=== PATIENT | female | born 1960 | race Hispanic/Latino ===

== ENCOUNTER 2019-06-30 13:20 | Emergency (ER) | payer OTHER ==
--- OUTSIDE RECORDS SUMMARY | 2019-06-30 13:22 | XMS REPORT ---
:1960 [facility] Manzano [address] [place] [address] Care Team Providers Name Role Phone Unavailable Unavailable Unavailable Problems This patient has no known problems. Allergies, Adverse Reactions, Alerts This patient has no known allergies or adverse reactions. Medications This patient has no known medications.
--- OUTSIDE RECORDS SUMMARY | 2019-06-30 13:22 | XMS REPORT | Summary of Care ---
:1960 Author Organization [facility] Address [address] [place] [address] Care Team Providers Name Role Phone Pcp, Patient Does Not Have A Primary Care Provider Reason for Visit Reason Comments Leg Pain Auth/Cert Status Reason Specialty Diagnoses / Referred By Referred To Procedures Contact Contact Emergency Medicine Diagnoses GROIN PAIN INTO LEG [facility] Emergency Dept [address] [place] [address] [place] [address] Encounter Details Date Type Department Care Team Description 04/03/2019 Emergency [facility]-Emergency Harvey Triana III, Sprain of groin, Department [place] initial encounter [address] [place] [address] [place] [address] (Primary Dx) [place] [address] [place], [place] [id number] Allergies Active Allergy Reactions Severity Noted Date Comments Naproxen Sodium Nausea and/or Vomiting 03/29/2015 Codeine Nausea and/or Vomiting 03/29/2015 documented as of this encounter (statuses as of 04/03/2019) Medications Medication Sig Dispensed Refills Start Date End Date Status doxycycline Take 1 Cap by 20 Cap 0 03/29/2015 Active (VIBRAMYCIN) 100 mg mouth 2 (two) capsule times daily. albuterol (VENTOLIN) Inhale 2 Puffs 1 Inhaler 0 03/29/2015 Active 90 mcg/actuation every 4 (four) inhaler hours as needed for Wheezing or Shortness of Breath. albuterol (PROAIR) Inhale 2 Puffs 8.5 g 3 09/23/2015 Active 90 mcg/actuation every 4 (four) inhaler hours as needed for Wheezing, Shortness of Breath or Bronchospasm. benzonatate 100 mg Take 1 capsule 20 capsule 0 03/26/2018 Active capsule by mouth 3 (three) times daily as needed for Cough. albuterol 2.5 mg /3 Inhale 3 mL 1 Box 0 03/26/2018 Active mL (0.083 %) every 4 (four) nebulizer solution hours as needed for Wheezing or Shortness of Breath. albuterol 90 Inhale 2 Puffs 8.5 g 0 03/26/2018 Active mcg/actuation every 4 (four) inhaler hours as needed for Wheezing or Shortness of Breath. predniSONE 10 mg Take 4 tablets 12 tablet 0 04/03/2019 Active tabletIndications: by mouth daily 9 Sprain of groin, for 3 days. initial encounter traMADol (ULTRAM) 50 Take 1 tablet 9 tablet 0 04/03/2019 Active mg by mouth every tabletIndications: 8 (eight) Sprain of groin, hours as initial encounter needed for Pain (scale 4-6). acetaminophen Take 3 tablets 60 tablet 0 04/03/2019 Active (TYLENOL) 325 mg by mouth 4 9 tabletIndications: (four) times Sprain of groin, daily for 5 initial encounter days. This is the maximum safe dose for a healthy adult. cyclobenzaprine 5 mg Take 1 tablet 9 tablet 0 04/03/2019 Active tabletIndications: by mouth 3 Sprain of groin, (three) times initial encounter daily. predniSONE 20 mg 1 PO BID x 4 8 tablet 0 03/26/2018 Discontinued tablet days 9 documented as of this encounter (statuses as of 04/03/2019) Active Problems No known active problemsdocumented as of this encounter (statuses as of 2018) Social History Tobacco Use Types Packs/Day Years Used Date Never Assessed Sex Assigned at Date Recorded Not on file Job Start Date Occupation Industry Not on file Not on file Not on file Travel History Travel Start Travel End No recent travel history available. documented as of this encounter Last Filed Vital Signs Vital Sign Reading Time Taken Comments Blood Pressure 129/91 04/03/2019 4:45 PM CDT Pulse 84 04/03/2019 4:45 PM CDT Temperature 36.4 C (97.5 F) 04/03/2019 4:45 PM CDT Respiratory Rate 18 04/03/2019 4:45 PM CDT Oxygen Saturation 99% 04/03/2019 4:45 PM CDT Inhaled Oxygen Concentration - - Weight 74.8 kg (165 lb) 04/03/2019 4:45 PM CDT Height - - Body Mass Index 29.23 03/26/2018 1:46 PM CDT documented in this encounter Discharge Instructions Harvey Mead III, PA - 04/03/2019 @@@@@@@@@@@@@@@@@@@@@@@@@@@@@@@@@@@@@@@@@@@@@@@@@@@@@ [facility] RETURN TO WORK / SCHOOL EXCUSE Arabella Alatorre WAS SEEN IN THE ER AND DISCHARGED 04/03/2019 TODAY, 4:55 PM & May return to Work / School / Incarceration on with No limitations unless indicated below. ___The following limitations apply until pt is seen by Physician and cleared to return to normal activity. ___ Light duty ___ No Sports ___ No work ___ Do not return until fever free for 24 hours. ___ No school [employer] [facility] [address] [place] [address] [place] [address] If you are unprepared to return to work tomorrow due to pain please give this note to your employer and make a follow up appointment with your MD for further evaluation and limitations. ### The patient may have been given Narcotic pain medications during their stay in the ED that may show up on a Drug Screen. The hospital discharge paper work will identify these medications. @@@@@@@@@@@@@@@@@@@@@@@@@@@@@@@@@@@@@@@@@@@@@@@@@@@@@ Thank you for trusting us with your care. The emergency room is the first stop in the medical management of your complaint . Our primary pupose is to identify life threatening emergancies and to rapidly address those issues. We are releasing you today after evaluation for emergency or life threatening problems related to your complaint. At this time we are comfortable that your condition is stable enough to go home, take oral medications and follow up for further care. If you can't afford a doctor OR MEDICATIONS consider Clinic [facility], [address], [place]; [phone] Medications Prevently WILL SHOW YOU WHERE YOU CAN GET YOUR MEDICATIONS CHEAPEST. 1. Call your doctor and let them know you were seen for ICD-10-CM ICD-9-CM 1. Sprain of groin, initial encounter S33.8XXA 848.8 2. Schedule a follow up within 3 days of your ER visit. 3. Take your prescriptions to the pharmacy and get them filled today. 4. Take the medications as prescribed and until completed. 5. You have been referred for further care 6. You may need additional tests Your doctors will help you figure out what you need and how to get them done. 7. Please read all paperwork provided to you. Additional instructions See Attached AttachmentsThe following attachments cannot be sent through Care Everywhere.Getting Into and Out of Bed, Back Safety (Bruneian)Strains and Sprains , Treating (Bruneian)documented in this encounter Plan of Treatment Health Maintenance Due Date Last Done Comments HEPATITIS C (HCV) SCREEN 1960 PNEUMOCOCCAL 0-64 YEARS COMBINED SERIES (1 of 1 - 1964 PPSV23) DTaP,Tdap,and Td Vaccines (1 - Tdap) 1977 PAP SMEAR 10/02/1979 MAMMOGRAM 1998 COLONOSCOPY 2008 Zoster Recombinant Vaccine (SHINGRIX) (1 of 2) 2008 INFLUENZA VACCINE (Retired version) 03/27/2019 documented as of this encounter Procedures Procedure Name Priority Date/Time Associated Diagnosis Comments NOTICE OF PRIVACY Routine 04/03/2019 4:45 PM CDT PRACTICES CONSENT/REFUSAL FOR Routine 04/03/2019 4:38 PM CDT DIAGNOSIS AND TREATMENT documented in this encounter Results Not on filedocumented in this encounter Visit Diagnoses Diagnosis Sprain of groin, initial encounter - Primary documented in this encounter Insurance Payer Benefit Plan / Subscriber ID Effective Dates Phone Address Type Group [facility] [id number] [facility] PPO t S [phone] [id number] (Work) documented as of this encounter
[2019-06-30 14:56] LABS: Urine Blood TRACE (NEG); Urine Glucose NEGATIVE (NEG); Urine Protein NEGATIVE (NEG)
--- NOTE | 2019-06-30 15:15 | EDPHYS ---
Physician Documentation [facility] Name: Arabella Alatorre Age: 58 yrs Sex: Female : 1960 Arrival Date: 06/30/2019 Time: 13:22 Bed 19 Private MD: ED Physician Beto Moralez HPI: 06/30 15:12 This 58 yrs old Female presents to ER via Ambulatory with complaints of Leg kb Swelling, Ankle Swelling, Low Back Pain. 15:12 The patient has not recently seen a physician. kb 15:12 The patient presents with pain, that is acute, swelling. The complaints affect the left kb quadriceps, right ankle. Context: the patient can fully bear weight, the patient is able to ambulate. Onset: The symptoms/episode began/occurred this morning. Modifying factors: The symptoms are alleviated by nothing. the symptoms are aggravated by standing at work for a long time. Associated signs and symptoms: Pertinent positives: swelling. Treatment prior to arrival includes: no previous treatment. Severity of symptoms: At their worst the symptoms were mild, in the emergency department the symptoms are unchanged. The patient has not experienced similar symptoms in the past. Pt reports right ankle swelling for "a while," left thigh pain that started this morning and left lower back pain that only happens when standing at work. Denies any injury. Has had ankle checked out before and everything was fine. Historical: - Allergies: 14:04 Codeine; jl7 - Home Meds: 14:04 None [Active]; jl7 - PMHx: 14:04 None; jl7 - PSHx: 14:04 None; jl7 - Immunization history:: Adult Immunizations not up to date. - Social history:: Smoking status: Patient uses tobacco products, smokes one-half pack cigarettes per day. - Ebola Screening: : No symptoms or risks identified at this time. ROS: 15:10 Constitutional: Negative for fever, chills, and weight loss, ENT: Negative for injury, kb pain, and discharge, Neck: Negative for injury, pain, and swelling, Cardiovascular: Negative for chest pain, palpitations, and edema, Respiratory: Negative for shortness of breath, cough, wheezing, and pleuritic chest pain, Abdomen/GI: Negative for abdominal pain, nausea, vomiting, diarrhea, and constipation, : Negative for injury, bleeding, discharge, and swelling, Skin: Negative for injury, rash, and discoloration, Neuro: Negative for headache, weakness, numbness, tingling, and seizure. 15:10 Back: Positive for of the right low back, pain when standing at work. 15:10 MS/extremity: Positive for pain, of the left quadriceps. 15:11 MS/extremity: Positive for swelling, of the right ankle. kb Exam: 15:10 Constitutional: This is a well developed, well nourished patient who is awake, alert, kb and in no acute distress. Head/Face: Normocephalic, atraumatic. Chest/axilla: Normal chest wall appearance and motion. Nontender with no deformity. No lesions are appreciated. Cardiovascular: Regular rate and rhythm with a normal S1 and S2. No gallops, murmurs, or rubs. Normal PMI, no JVD. No pulse deficits. Respiratory: Lungs have equal breath sounds bilaterally, clear to auscultation and percussion. No rales, rhonchi or wheezes noted. No increased work of breathing, no retractions or nasal flaring. Abdomen/GI: Soft, non-tender, with normal bowel sounds. No distension or tympany. No guarding or rebound. No evidence of tenderness throughout. Skin: Warm, dry with normal turgor. Normal color with no rashes, no lesions, and no evidence of cellulitis. MS/ Extremity: Pulses equal, no cyanosis. Neurovascular intact. Full, normal range of motion. Neuro: Awake and alert, GCS 15, oriented to person, place, time, and situation. Cranial nerves II-XII grossly intact. Motor strength 5/5 in all extremities. Sensory grossly intact. Cerebellar exam normal. Normal gait. 15:10 Back: pain, that is mild, of the right low back. Vital Signs: 14:04 BP 106 / 87; Pulse 88; Resp 19 S; Temp 98.4(O); Pulse Ox 95% on R/A; Weight 74.84 kg 7 (R); Height 5 ft. 3 in. (160.02 cm) (R); Pain 6/10; 14:55 BP 116 / 78; Pulse 75; Pulse Ox 95% on R/A; jb1 14:04 Body Mass Index 29.23 (74.84 kg, 160.02 cm) jl7 MDM: 14:06 Patient medically screened. kb 15:10 Data reviewed: vital signs, nurses notes. Data interpreted: Pulse oximetry: on room air kb is 95 %. Interpretation: normal. Counseling: I had a detailed discussion with the patient and/or guardian regarding: the historical points, exam findings, and any diagnostic results supporting the discharge/admit diagnosis, radiology results, the need for outpatient follow up, a family practitioner, to return to the emergency department if symptoms worsen or persist or if there are any questions or concerns that arise at home. 06/30 14:30 Order name: Urine Dipstick--Ancillary (enter results); Complete Time: 14:57 em1 06/30 14:27 Order name: US Extremity Venous W Compression Cody kb 06/30 14:30 Order name: Urine Dipstick-Ancillary (obtain specimen); Complete Time: 14:30 em1 Administered Medications: No medications were administered Disposition: 17:21 Co-signature as Attending Physician, Beto Moralez MD. rn Disposition: 06/30/19 15:14 Discharged to Home. Impression: Low back pain, Pain in left thigh. - Condition is Stable. - Discharge Instructions: Musculoskeletal Pain, Back Injury Prevention, Zcbq-[id number], Back Pain, Adult, Fpyd-mv-Hfjp, Back Exercises, Owji-cv-Wdak. - Medication Reconciliation Form, Thank You Letter, Antibiotic Education, Prescription Opioid Use, Work release form form. - Follow up: Emergency Department; When: As needed; Reason: Worsening of condition. Follow up: Private Physician; When: 2 - 3 days; Reason: Recheck today's complaints, Continuance of care, Re-evaluation by your physician. Signatures: Dispatcher [employer] EDNE Macey Gusman, ENVIRONMENTAL PROGRAMS MANAGER-C ENVIRONMENTAL PROGRAMS MANAGER-Ckb Beto Moralez MD MD rn Martinez, Eric em1 Juhi Siegel RN RN jl7 Joy Gonzalez RN RN ca1 Corrections: (The following items were deleted from the chart) 15:31 15:14 06/30/2019 15:14 Discharged to Home. Impression: Low back pain; Pain in left ca1 thigh. Condition is Stable. Forms are Medication Reconciliation Form, Thank You Letter, Antibiotic Education, Prescription Opioid Use. Follow up: Emergency Department; When: As needed; Reason: Worsening of condition. Follow up: Private Physician; When: 2 - 3 days; Reason: Recheck today's complaints, Continuance of care, Re-evaluation by your physician. kb
--- NOTE | 2019-06-30 15:15 | ER ---
Nurse's Notes [facility] Name: Arabella Alatorre Age: 58 yrs Sex: Female : 1960 Arrival Date: 06/30/2019 Time: 13:22 Bed 19 Private MD: Diagnosis: Low back pain;Pain in left thigh Presentation: 06/30 14:02 Presenting complaint: Patient states: Right ankle swelling started yesterday, denies jl7 trauma, reports standing a lot at work. Reports left low back pain when standing at work for the past month. Reports left upper thigh pain started this morning. Transition of care: patient was not received from another setting of care. Onset of symptoms was June 29, 2019. Risk Assessment: Do you want to hurt yourself or someone else? Patient reports no desire to harm self or others. Initial Sepsis Screen: Does the patient meet any 2 criteria? No. Patient's initial sepsis screen is negative. Does the patient have a suspected source of infection? No. Patient's initial sepsis screen is negative. Care prior to arrival: None. 14:02 Method Of Arrival: Ambulatory [facility] 14:02 Acuity: RAY 4 jl7 Historical: - Allergies: 14:04 Codeine; jl7 - Home Meds: 14:04 None [Active]; jl7 - PMHx: 14:04 None; jl7 - PSHx: 14:04 None; jl7 - Immunization history:: Adult Immunizations not up to date. - Social history:: Smoking status: Patient uses tobacco products, smokes one-half pack cigarettes per day. - Ebola Screening: : No symptoms or risks identified at this time. Screenin:15 Abuse screen: Denies threats or abuse. Denies injuries from another. Nutritional ca1 screening: No deficits noted. Tuberculosis screening: No symptoms or risk factors identified. Fall Risk Gait- Impaired (20 pts.). Assessment: 14:15 General: Appears in no apparent distress. comfortable, Behavior is calm, cooperative, ca1 appropriate for age. Pain: Complains of pain in left quadriceps, left lower back Pain currently is 7 out of 10 on a pain scale. at worst was 12 out of 10 on a pain scale. Pain began this morning. Pain: Aggravated by weight bearing. Neuro: Level of Consciousness is awake, alert, obeys commands, Oriented to person, place, time, situation, Appropriate for age. Cardiovascular: Heart tones S1 S2 present Capillary refill < 3 seconds Patient's skin is warm and dry. Respiratory: Airway is patent Respiratory effort is even, unlabored, Respiratory pattern is regular, symmetrical, Breath sounds are clear bilaterally. GI: Abdomen is flat, non-distended, Bowel sounds present X 4 quads. Abd is soft and non tender X 4 quads. : Urine is clear. EENT: No deficits noted. No signs and/or symptoms were reported regarding the EENT system. Derm: Skin is intact, is healthy with good turgor, Skin is pink, warm \T\ dry. Musculoskeletal: Circulation, motion, and sensation intact. Capillary refill < 3 seconds, Swelling present in right ankle, medial aspect of right foot, right knee and right [place]. 14:56 Reassessment: Patient appears in no apparent distress at this time. Patient is alert, ca1 oriented x 3, equal unlabored respirations, skin warm/dry/pink. Ultrasound at bedside. Vital Signs: 14:04 BP 106 / 87; Pulse 88; Resp 19 S; Temp 98.4(O); Pulse Ox 95% on R/A; Weight 74.84 kg jl7 (R); Height 5 ft. 3 in. (160.02 cm) (R); Pain 6/10; 14:55 BP 116 / 78; Pulse 75; Pulse Ox 95% on R/A; jb1 14:04 Body Mass Index 29.23 (74.84 kg, 160.02 cm) jl7 ED Course: 13:22 Patient arrived in ED. as 14:04 Triage completed. jl7 14:04 Arm band placed on right wrist. Patient placed in an exam room, on a stretcher. jl7 14:06 Macey Gusman FNP-C is PHCP. kb 14:06 Beto Moralez MD is Attending Physician. kb 14:15 Patient has correct armband on for positive identification. Bed in low position. Call ca1 light in reach. Side rails up X 1. Pulse ox on. NIBP on. Warm blanket given. 14:15 No provider procedures requiring assistance completed. ca1 14:17 Joy Gonzalez, RN is Primary Nurse. ca1 15:06 US Extremity Venous W Compression Cody In Process Unspecified. EDMS 15:18 Patient did not have IV access during this emergency room visit. ca1 Administered Medications: No medications were administered Outcome: 15:14 Discharge ordered by MD. haynes 15:23 Discharged to home ambulatory. ca1 15:23 Condition: stable 15:23 Discharge instructions given to patient, Instructed on discharge instructions, follow up and referral plans. Demonstrated understanding of instructions, follow-up care. 15:31 Patient left the ED. ca1 Signatures: Dispatcher [employer] EDMS Enrike Sales jbMacey Martell, BRASS RECLAIMER-C BRASS RECLAIMER-Graciela Gomez Jahala, RN RN jl7 Joy Gonzalez RN RN ca1
[2019-06-30 15:39] VITALS: TEMP 98.4; O2SAT 95
--- NOTE | 2019-06-30 15:39 | RAD REPORT ---
EXAM DESCRIPTION: USExtrem Venous W Compress Bil06/30/2019 3:01 pm CLINICAL HISTORY: Leg pain COMPARISON: none FINDINGS: The common femoral, superficial femoral, popliteal and posterior tibial veins bilaterally are compressible and demonstrate augmentation. Doppler demonstrates good flow. IMPRESSION: No evidence of deep venous thrombosis involving either lower extremity.
[2019-06-30 15:46] VITALS: BP 116/78
== END 2019-06-30 15:31 | disposition home or self-care (01) ==
LOC: ER 13:20
DX: M79.652 Pain in left thigh (principal); F17.210 Nicotine dependence, cigarettes, uncomplicated; Z88.5 Allergy status to narcotic agent
CPT/HCPCS: 81003; 93970; 99283